=== PATIENT | male | born 1985 | race Caucasian/White ===

== ENCOUNTER 2017-01-01 10:01 | Outpatient (CLI) | payer OTHER ==
[2017-01-01 10:33] LABS: eGFR (African) > 60; eGFR (Non-African) > 60
[2017-01-01 10:35] LABS: BASOPHILS % 0.5 (0.0-1.5); EOSINOPHILS % 0.3 % (0.0-6.8); MEAN CORPUSCULAR HEMOGLOBIN 31.2 pg (28.0-34.0); MONOCYTES # 1.7 # k/uL (0.0-0.9); MONOCYTES % 9.9 % (0.0-11.0)
== END 2017-01-01 10:02 ==
LOC: LAB 10:01
PROVIDERS: ATTEND General Practice
DX: R10.9 Unspecified abdominal pain (principal)
CPT/HCPCS: 80053; 85025